=== PATIENT | female | born 2000 | race Caucasian/White ===

== ENCOUNTER 2019-03-26 12:06 | Emergency (ER) | payer BC ==
[2019-03-26 13:47] VITALS: BP 143/70
--- NOTE | 2019-03-26 14:06 | UC ---
Minor Trauma HPI - HPI Summary HPI Summary: Pt presents with c/o left hand swelling and pain, left side facial abrasion and swelling s/p falling from standing yesterday ~ 1700 while walking outside. Pt states that she had been drinking etoh, is able to recall fall and has witnesses to fall. - History of Current Complaint Chief Complaint: UCHeadInjury Stated Complaint: LT HAND/ FACIAL INJURY Time Seen by Provider: 03/26/19 13:42 Hx Obtained From: Patient Hx Last Menstrual Period: 03/05/19 ?: No Onset/Duration: Sudden Onset, Still Present Onset Of Pain: Immediate Severity Initially: Mild Severity Currently: Moderate Pain Intensity: 3 Mechanism Of Injury: Fall From A Standing Position Aggravating Factor(s): Movement Alleviating Factor(s): Rest Associated Signs And Symptoms: Positive: Ecchymosis, Swelling - Risk Factors Penetrating Injury Risk Factors: Negative Compartment Syndrome Risk Factors: Pain - Allergies/Home Medications Allergies/Adverse Reactions: Allergies Allergy/AdvReac Type Severity Reaction Status Date / Time No Known Allergies Allergy Verified 03/26/19 13:47 Home Medications: Home Medications Ibuprofen TAB* [Motrin TAB* 600 MG] 600 mg PO Q6H PRN 03/26/19 [History Confirmed 03/26/19] PMH/Surg Hx/FS Hx/Imm Hx Previously Healthy: Yes - Surgical History Surgical History: None - Family History Known Family History: Positive: Cardiac Disease - Social History Occupation: Student Lives: Dormitory/Roommates Alcohol Use: Occasionally Substance Use Type: None Smoking Status (MU): Never Smoked Tobacco Have You Smoked in the Last Year: No - Immunization History Vaccination Up to Date: Yes Review of Systems All Other Systems Reviewed And Are Negative: Yes Constitutional: Positive: Negative Skin: Positive: Bruising, Other - multiple abrasions to left side of face, swelling and bruising of left hand. Eyes: Positive: Negative, Eye Redness - left eye ENT: Positive: Negative Respiratory: Positive: Negative Cardiovascular: Positive: Negative Gastrointestinal: Positive: Negative Genitourinary: Positive: Negative Motor: Positive: Decreased ROM - left hand Neurovascular: Positive: Negative Musculoskeletal: Positive: Arthralgia - left hand, Decreased ROM - left hand, Edema - left hand and left side of face, Myalgia - left hand Neurological: Positive: Negative Psychological: Positive: Negative Is Patient Immunocompromised?: No Physical Exam Triage Information Reviewed: Yes Appearance: Pain Distress Vital Signs: Initial Vital Signs Temp 99.1 F 03/26/19 13:43 Pulse 91 03/26/19 13:43 Resp 14 03/26/19 13:43 BP 143/70 03/26/19 13:43 Pulse Ox 99 03/26/19 13:43 Vital Signs Reviewed: Yes Eye Exam: Normal Eyes: Positive: Other: - subconjunctival hemorrhage left outer eye ENT Exam: Normal ENT: Positive: Hearing grossly normal Dental Exam: Normal Neck exam: Normal Respiratory Exam: Normal Respiratory: Positive: No respiratory distress Musculoskeletal: Positive: Strength Limited @ - left hand, ROM Limited @ - left hand, Edema @ - left hand and left side of face Neurological Exam: Normal Psychological Exam: Normal Skin Exam: Other - scabbed abrasions left side of face Diagnostics - Radiology No standard instances Radiology Interpretation Completed By: Radiologist - negative for fracture for facial bones fracture of left index finger. Minor Trauma Course/Dx - Differential Dx/Diagnosis Differential Diagnosis/HQI/PQRI: Abrasion(s), Fracture Provider Diagnosis: Facial abrasion, Fracture of phalanx of left index finger Discharge ED - Sign-Out/Discharge Documenting (check all that apply): Patient Departure All imaging exams completed and their final reports reviewed: Yes - Discharge Plan Condition: Stable Disposition: HOME Prescriptions: Mupirocin 2% OINT* [Bactroban 2 % Oint*] 1 applic TOPICAL Q12H #1 tube Patient Education Materials: Finger Fracture (ED), Abrasion (ED) Referrals: Jacob Roger MD [Medical Doctor] - As Soon As Possible No Primary Care Phys,NOPCP [Primary Care Provider] - - Billing Disposition and Condition Condition: STABLE Disposition: Home
== END 2019-03-26 14:54 | disposition home or self-care (01) ==
LOC: UCCORT 12:06
DX: S00.81XA Abrasion of other part of head, initial encounter (principal); S62.601A Fracture of unspecified phalanx of left index finger, initial encounter for closed fracture; W18.30XA Fall on same level, unspecified, initial encounter; Y92.9 Unspecified place or not applicable
CPT/HCPCS: 70150; 99203; G0463